=== PATIENT | male | born 1960 | race Caucasian/White ===

== ENCOUNTER → 2024-08-02 | Outpatient (CLI) | payer MEDICARE, MEDICAID, SELFPAY ==
[2024-08-08 06:17] LABS: ANA Screen, IFA NEGATIVE (NEGATIVE)
== END | disposition home or self-care (01) ==
LOC: COPL 15:52
PROVIDERS: PCP Physician Assistant; Referring Provider Specialist; Visit Provider Specialist
DX: R13.10 Dysphagia, unspecified (principal)
CPT/HCPCS: 36415; 84443; 86038

== ENCOUNTER 2024-08-29 09:00 | Day surgery (SDC) | payer MEDICARE, MEDICAID, SELFPAY ==
[2024-08-29] VITALS (9 sets, daily range): BP systolic 115–169; BP diastolic 84–104; PULSE 58–88; RESP 12–18; TEMP 36.4–36.7; O2SAT 94–98; BMI 23.0
[2024-08-29] MEDS: DiphenhydrAMINE INJ 50 MG/ML VIAL 25 MG IV (11:39)
[2024-08-29] MEDS: fentaNYL CIT INJ 50 mCg/ML AMP 2ML (ASD USE ONLY) IV (11:41)
[2024-08-29] MEDS: MIDAZOLAM INJ 1 MG/ML VIAL 2 ML (ASD USE ONLY) 2 MG IV (11:44)
--- NOTE | 2024-08-29 13:35 | SUR.PHASEII ---
1225 Pt more awake and alert. Denies pain, N/V or difficulty swallowing. Jina PO fluids. 1258 Pt assessment unchanged. No complaints. Amb with sready gait. Able to dress self. Pt and brother, Elbert, given dc instructions. Both state understanding. Pt meets dc criteria-to home.
== END 2024-08-29 12:58 | disposition home or self-care (01) ==
PROVIDERS: PCP Physician Assistant; Referring Provider Specialist; Visit Provider Specialist
PROC: (CPT 43239; principal; 2024-08-29 11:00)
DX: K20.90 Esophagitis, unspecified without bleeding (principal); K22.2 Esophageal obstruction; K29.70 Gastritis, unspecified, without bleeding
CPT/HCPCS: 43248; 43239; A4649; C1769; J1200; J2250; J3010